=== PATIENT | male | born 1980 | race Caucasian/White ===

== ENCOUNTER 2018-06-04 14:37 | Emergency (ER) | payer OTHER, SELFPAY ==
[2018-06-04 14:46] VITALS: BP 136/79; PULSE 60; RESP 15; TEMP 36.3; O2SAT 99; BMI 25.0
[2018-06-04 16:12] LABS: Alanine Aminotransferase 35 IU/L (21-72)
--- NOTE | 2018-06-04 17:42 | ED_ITS ---
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 He feels as though the patient is low risk for HIV and communicable diseases. States he is vaccinated against hepatitis-B. He states his last tetanus was over 10 years ago but does not want an updated tetanus. Upon inquiry he states that this is not an L and I case. He states he wants basic lab work drawn and exposure panel drawn. Patient states he does not think it bled. States it bled after after he washed out. Related Data Allergies Allergy/AdvReac Type Severity Reaction Status Date / Time No Known Drug Allergies Allergy Verified 06/04/18 14:46 Review of Systems <CASS Marrero - Last Filed: 06/04/18 19:47> Review of Systems GENERAL: Denies chills, fatigue, malaise, fever, sweats. HEENT: Denies sinus pain, ear pain, sore throat, difficulty swallowing, dizziness. RESPIRATORY: Denies dyspnea, cough, wheezing, hemoptysis, sputum. CARDIOVASCULAR: Denies chest pain, palpitations, orthopnea, edema, GASTROINTESTINAL: Denies nausea, vomiting, abdominal pain, diarrhea, constipation, melena. : Denies dysuria, frequency, incontinence, hematuria, urinary retention. MUSCULOSKELETAL: denies weakness, joint pain, or bony pain SKIN: See HPI NEUROLOGIC: Denies weakness, headache, numbness, change in speech, confusion, seizures, incoordination. PSYCHIATRIC: No concerning psychosocial issues. 12 point review of systems is negative except for those stated above Exam <CASS Marrero - Last Filed: 06/04/18 19:47> Narrative Exam Narrative: GENERAL: This is a well-nourished, well-developed patient, in no acute distress HEAD: Atraumatic. Normocephalic. No temporal or scalp tenderness. EYES: Pupils equal round and reactive. Extraocular motions intact. No scleral icterus. No injection or drainage. ENT: Nose without bleeding, purulent drainage or septal hematoma. Throat without erythema, tonsillar hypertrophy or exudate. Uvula midline. Airway patent. NECK: Trachea midline. No JVD or lymphadenopathy. Supple, nontender, no meningeal signs. CARDIOVASCULAR: Regular rate and rhythm RESPIRATORY: No cough. No accessory muscle use. No increased respiratory effort. EXTREMITIES: No clubbing, cyanosis, or edema. No joint tenderness, effusion, or edema noted. BACK: Nontender without deformity or crepitance. No flank tenderness. NEURO: AOx3. SKIN: Small possible puncture wound noted left index finger. Initial Vital Signs Initial Vital Signs: Vital Signs Temperature 97.4 F L 06/04/18 14:46 Pulse Rate 60 06/04/18 14:46 Respiratory Rate 15 06/04/18 14:46 Blood Pressure 136/79 06/04/18 14:46 Pulse Oximetry 99 06/04/18 14:46 <Jhoana Alvarado DO - Last Filed: 06/05/18 09:50> Initial Vital Signs Initial Vital Signs: Vital Signs Temperature 97.4 F L 06/04/18 14:46 Pulse Rate 60 06/04/18 14:46 Respiratory Rate 15 06/04/18 14:46 Blood Pressure 136/79 06/04/18 14:46 Pulse Oximetry 99 06/04/18 14:46 Course <AYUSH Marrero - Last Filed: 06/04/18 19:47> Orders Ordered: Discontinued Medications Diphtheria/Tetanus/Acell Pertussis (Adacel) 0.5 ml IM .ONCE ONE Stop: 06/04/18 15:42 Last Admin: 06/04/18 16:10 Dose: Vital Signs - 8 hr 06/04/18 14:46 06/04/18 17:51 Temperature 97.4 F L 97.8 F Pulse Rate 60 57 L Respiratory Rate 15 14 Blood Pressure 136/79 Blood Pressure [Left Arm] 110/71 Pulse Oximetry 99 99 <DO Evelyn Abad Last Filed: 06/05/18 09:50> Orders Ordered: Discontinued Medications Diphtheria/Tetanus/Acell Pertussis (Adacel) 0.5 ml IM .ONCE ONE Stop: 06/04/18 15:42 Last Admin: 06/04/18 16:10 Dose: Vital Signs - 8 hr 06/04/18 14:46 06/04/18 17:51 Temperature 97.4 F L 97.8 F Pulse Rate 60 57 L Respiratory Rate 15 14 Blood Pressure 136/79 Blood Pressure [Left Arm] 110/71 Pulse Oximetry 99 99 Medical Decision Making <Betty Uriostegui MACHINE FILLER-BC - Last Filed: 06/04/18 19:47> Lab Data Lab Results 06/04/18 06/04/18 Range/Units 15:53 15:53 ALT 35 (21-72) IU/L Hepatitis C Antibody Negative (NEGATIVE) s/c HIV 1&2 Antibody Negative (NEGATIVE) MDM Narrative Medical decision making narrative: 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 Exam indicates a possible needle stick site on his left index finger. Per protocol, baseline labs were drawn for ALTE, HIV, hep B and hep C. I discussed is normal ALT, negative hep C negative HIV. I encouraged him to follow up with medical records for his further results as he does not have a primary care provider. The patient has no questions or concerns upon discharge. <Jhoana Alvarado DO - Last Filed: 06/05/18 09:50> Lab Data Lab Results 06/04/18 06/04/18 Range/Units 15:53 15:53 ALT 35 (21-72) IU/L Hepatitis C Antibody Negative (NEGATIVE) s/c HIV 1&2 Antibody Negative (NEGATIVE) Discharge Plan Departure Patient Disposition: Home Clinical Impression: Accidental needlestick injury with exposure to body fluid Discharge Date/Time: 06/04/18 18:16 Interventions: ED Discharge Assessment Last Done: 06/04/18 18:16 Instructions: DI for Accidental Exposure to Body Fluids Activity Restrictions/Additional Instructions: Today we tested for HIV, hepatitis-B and C per needle stick protocol. Your results will be available in 72 hr through medical records. They are located by the [facility], and if you show them your ID, you will be able to access your chart. Irregular results also get flags for charge nurse phone calls. Please come back to the emergency department for any acute concerns. <Jhoana Alvarado DO - Last Filed: 06/05/18 09:50> Cosign ED Attending Cosemaature Attestation: I was immediately available in the department for consultation. Documentation has been reviewed. I agree with assessment and plan.
[2018-06-04 17:48] LABS: HIV 1 and 2 Antibody NEGATIVE (NEGATIVE); Hep C Virus Ab w/Reflex Quant NEGATIVE s/c (NEGATIVE)
[2018-06-04 17:51] VITALS: BP 110/71; PULSE 57; RESP 14; TEMP 36.6; O2SAT 99
[2018-06-06 15:01] LABS: Hepatitis B Surf Ab Qualitativ Nonreactive (Nonreactive)
== END 2018-06-04 18:16 | disposition home or self-care (01) ==
PROVIDERS: Emergency Provider Nurse Practitioner Family
DX: Z77.21 Contact with and (suspected) exposure to potentially hazardous body fluids (principal); W27.3XXA Contact with needle (sewing), initial encounter
CPT/HCPCS: 36415; 84460; 86703; 86706; 86803; 99282; 99283